=== PATIENT | male | born 1960 | race African-American/Black ===

== ENCOUNTER 2016-03-28 12:50 | Emergency (ER) | payer BC ==
[~2016-03-28] VITALS: Ht 170.2 cm; Wt 91.8 kg
[~2016-03-28 12:50] MED LIST: AFRIN,GENASAL D15 ML BOTH NARES; LISINOPRIL20 MG PO; OCEAN NASAL 0.645 ML BOTH NARES; VENTOLIN HFA18 GM IH
[2016-03-28 13:54] LABS: HEMATOCRIT 41.5 % (38.0-50.0); MCV 79.3 FL (86-99); MEAN PLAT.VOLUME 9.3 uM^3 (9.0-12.4); PLATELET COUNT 274 K/uL (156-360); RBC DIS.WIDTH-CV 13.8 % (11.8-14.6); RBC DIS.WIDTH-SD 39.7 % (39-53); RED BLOOD COUNT 5.23 M/uL (4.00-5.50); WHITE BLOOD COUNT 6.2 K/uL (4.1-10.2)
[2016-03-28 14:06] LABS: CHLORIDE 104 mEq/L (99-109); POTASSIUM 4.3 mEq/L (3.7-5.4); SODIUM 137 mEq/L (136-147)
[2016-03-28 14:09] LABS: GLUCOSE 105 mg/dL (70-99)
[2016-03-28 14:10] LABS: ANION GAP 10 MEQ/L (2-14); TOTAL BILIRUBIN 0.2 mg/dL (0.0-1.0)
[2016-03-28 14:12] LABS: ALKALINE PHOSPHATASE 65 IU/L (3-129); GFR ESTIMATE (CALCULATED) > 59 mL/min/
[2016-03-28 14:13] LABS: UREA NITROGEN (BUN) 18 mg/dL (9-23)
[2016-03-28 14:14] LABS: DIRECT BILIRUBIN 0.1 mg/dL (0.0-0.3)
[2016-03-28 14:16] LABS: LIPASE 82 U/L (1.0-51.0)
[2016-03-28 15:32] LABS: TROP-I INTERPRETATION NEGATIVE; TROPONIN-I < 0.01 ng/mL (0.0-0.30)
[2016-03-28 18:09] LABS: ADD MIUA? NO; BILIRUBIN NEGATIVE; BLOOD NEGATIVE; COLOR YELLOW ((YELLOW)); GLUCOSE (STRIP) NEGATIVE; KETONES NEGATIVE; LEUKOCYTES NEGATIVE; NITRITE NEGATIVE; PROTEIN (STRIP) NEGATIVE; SPECIFIC GRAVITY 1.045 (1.000-1.030); UCUL ADDED? NO; UROBILINOGEN 0.2 MG/DL (0.2-1.0)
[2016-03-28] MEDS ORDERED: PERCOCET 5/31 TABLET PO ×2 (18:58→19:13)
[2016-03-28] MEDS ORDERED: MOTRIN800 MG PO ×2 (19:01→19:13)
[2016-03-28 20:24] VITALS: BP 124/71
== END 2016-03-28 20:26 | disposition home or self-care (01) ==
LOC: EME 12:50
PROVIDERS: Nurse Practitioner Family
DX: R10.9 Unspecified abdominal pain (principal); M54.5 Low back pain; M54.6 Pain in thoracic spine; I10 Essential (primary) hypertension; Z87.891 Personal history of nicotine dependence
CPT/HCPCS: 74000; 74177; 80053; 81003; 82248; 83690; 84484; 85027; 85610; 85730; 93005; 99281; 99285; J1885; J2270; J2405; J7030

== ENCOUNTER 2017-08-29 01:22 | Emergency (ER) | payer BC ==
[~2017-08-29] VITALS: Ht 170.2 cm; Wt 90.6 kg
[~2017-08-29 01:22] MED LIST changes: +CLARITIN10 M3 PO; +FLONASE16 G1 BOTH NARES; +MOTRIN600 MG PO; +MOTRIN800 MG PO; +PERCOCET 5/31 TABLET PO
[2017-08-29 01:43] LABS: HEMATOCRIT 42.1 % (38.0-50.0); HEMOGLOBIN 14.3 G/DL (12.5-16.6); MCH 27.6 PG (29.0-34.0); MCV 81.1 FL (86-99); PLATELET COUNT 266 K/uL (156-360); RBC DIS.WIDTH-CV 13.7 % (11.8-14.6); RBC DIS.WIDTH-SD 40.5 % (39-53); RED BLOOD COUNT 5.19 M/uL (4.00-5.50); WHITE BLOOD COUNT 6.6 K/uL (4.1-10.2)
[2017-08-29 01:53] LABS: ALBUMIN 4.4 g/dL (3.2-4.8)
[2017-08-29 01:54] LABS: CHLORIDE 99 mEq/L (99-109); POTASSIUM 4.4 mEq/L (3.7-5.4); SODIUM 136 mEq/L (136-147)
[2017-08-29 01:56] LABS: GLUCOSE 85 mg/dL (70-99); TOTAL PROTEIN 7.7 g/dL (6.4-8.3)
[2017-08-29 01:58] LABS: TOTAL BILIRUBIN 0.4 mg/dL (0.0-1.0)
[2017-08-29 01:59] LABS: ALKALINE PHOSPHATASE 81 IU/L (3-129)
[2017-08-29 02:00] LABS: CREATININE 1.4 mg/dL (0.6-1.3); GFR ESTIMATE (CALCULATED) > 59 mL/min/ (58.99-99999)
[2017-08-29 02:01] LABS: AST (GOT) 24 IU/L (2-34); UREA NITROGEN (BUN) 18 mg/dL (9-23)
[2017-08-29 02:02] LABS: APPEARANCE CLEAR ((CLEAR)); BILIRUBIN NEGATIVE; BLOOD NEGATIVE; COLOR YELLOW ((YELLOW)); GLUCOSE (STRIP) NEGATIVE; KETONES NEGATIVE; LEUKOCYTES NEGATIVE; NITRITE NEGATIVE; PROTEIN (STRIP) NEGATIVE; SPECIFIC GRAVITY 1.023 (1.000-1.030); UCUL ADDED? NO; UROBILINOGEN 0.2 MG/DL (0.2-1.0)
[2017-08-29 02:02] LABS: ALT (GPT) 36 IU/L (3-49)
[2017-08-29 02:03] LABS: LIPASE 65 U/L (1.0-51.0)
[2017-08-29] MEDS ORDERED: ZOFRAN4 MG PO (04:58)
[2017-08-29 05:19] VITALS: BP 117/70
== END 2017-08-29 05:19 | disposition home or self-care (01) ==
LOC: EME 01:22
DX: B34.9 Viral infection, unspecified (principal); M79.1 Myalgia; R10.31 Right lower quadrant pain; I10 Essential (primary) hypertension
CPT/HCPCS: 71046; 74177; 80053; 81003; 83690; 85027; 99281; 99285; J1885; J7030